=== PATIENT | male | born 1960 | race Caucasian/White ===

== ENCOUNTER 2017-04-02 22:51 | Inpatient (IN) | payer OTHER ==
--- NOTE | ~2017-04-02 | PA ---
Unit #: [id number] #: [id number] Patient: HOWARD LEIVA [id number] [facility] [address] [place] [address] [id number] I MR#: [id number] NAME: HOWARD LEIVA ROOM: P180 Age: 56 Sex: M Admission Date: 04/02/2017 : 1960 Date of Assessment: Attending Physician: Ish Galindo M.D. Admitting Physician: Ish Galindo M.D. Primary Care Physician: Reese Garcia PSYCHIATRIC ASSESSMENT DATE OF SERVICE 04/03/2017. IDENTIFYING DATA Mr. Leiva is a 56-year-old single white male, who is a resident of [place], [place] and was self-referred to the hospital on a voluntary basis. CHIEF COMPLAINT "I've been using alcohol for 11 years." HISTORY OF PRESENT ILLNESS Mr. Leiva is a 56-year-old white male, who was self-referred to the hospital. Upon presentation, he had a blood alcohol level of 0.124 and stated that he was having abdominal pains and was examined by the nurse and reports that he has been abusing alcohol for 11 years and reports that he has been drinking daily a pint of vodka, reports having suicidal ideation, as he stated "I wish it could be over, I wish I would not be here anymore, but I would never do anything to myself to end my life. I just wish to be done with my life." The patient reports increasing depression, anxiety, and reports that he lost his job a week ago due to his alcohol abuse and has been decompensating and has been having feelings of hopelessness and helplessness, and suicidal ideations though he denied any intent or plan. However, he was seen to be a significant danger to self and as such, recommendation for inpatient level of care for safety and stabilization was made and the patient was stepped up to the inpatient unit. SUBSTANCE ABUSE HISTORY The patient reports history of experimentation with alcohol, cannabis, cocaine, acid and amphetamine over the years and currently alcohol has been his drug of choice and reports that he has been drinking since he was 16 years old and currently has been drinking a pint of vodka a day. PAST PSYCHIATRIC HISTORY The patient has had a history of multiple inpatient chemical dependency treatments including being at [facility], at [facility] and at [facility] and has done outpatient treatment through [facility] and review of the medical records indicated that he is currently on Risperdal 1 mg at bedtime, though he does not appear to be following up with a psychiatrist on an outpatient basis. PAST MEDICAL HISTORY Unit #: [id number] #: [id number] Patient: HOWARD LEIVA Significant for alcoholic pancreatitis and alcoholic hepatitis. ALLERGIES Sulfa drugs. PERSONAL AND SOCIAL HISTORY A 56-year-old white male, who reports that he lives at home with his life partner and is currently unemployed and has poor social support system. MENTAL STATUS EXAMINATION Middle-aged white male, who was casually dressed with fair personal hygiene, appears to be in no acute distress or discomfort. He was awake and alert on interaction with intact orientation to time, place, and person. His mood was anxious and depressed with a congruent affect. His speech was slow and goal directed. He reports having suicidal ideations, but denies any homicidal ideations, and also denies any auditory or visual hallucinations. His insight and judgment remain significantly impaired. DIAGNOSTIC IMPRESSION Psychiatric: Alcohol dependence, moderate and acute withdrawals; alcohol-induced mood disorder. Medical: None. Stressors: Moderate psychosocial stressors. TREATMENT PLAN 1. The patient has presented with a history of mood disorder and substance abuse and has been decompensating and will need inpatient hospitalization for detoxification, safety, and stabilization. We will start him back on his home medications. We will adjust the medications and monitor response. 2. Supportive therapy was provided to the patient. 3. Safe, structured, and nourishing environment will be provided. ESTIMATED LENGTH OF STAY 5 to 7 days. ABILITY TO HELP SELF Limited. WILLINGNESS TO HELP SELF The patient appears to be willing to help self. STRENGTHS 1. Communicative. 2. Cooperative. PROBLEMS 1. Chronic chemical dependency. 2. Chronic dysphoric symptoms. 3. Poor social support system. DISCHARGE CRITERIA This will be contingent upon the patient's ability to go through detox without having any significant withdrawal symptoms and his ability to stay safe to himself, particularly after discharge from the hospital. Unit #: [id number] #: [id number] Patient: HOWARD LEIVA Dictated by... Augie Marshall/rikcie TD: 04/03/2017 06:44 JOB #: [id number] PSYCHIATRIC ASSESSMENT Page 1 of 1 X Ish Galindo MD PSYCHIATRIC ASSESSMENT
--- NOTE | ~2017-04-02 | DS ---
Unit #: [id number] #: [id number] Patient: HOWARD LEIVA [id number] [place] [address] [id number] I MR#: [id number] NAME: HOWARD LEIVA ROOM: [facility] Age: 57 Sex: M Admission Date: 04/02/2017 : 1960 Discharge Date: 04/08/2017 Attending Physician: Ish Galindo M.D. Primary Care Physician: Reese Garcia DISCHARGE SUMMARY IDENTIFYING DATA Mr. Leiva is a 56-year-old single white male, who is a resident of [place], [place], and was self-referred to the hospital on a voluntary basis. DISCHARGE DIAGNOSES Psychiatric: Alcohol dependence, moderate and acute withdrawals; alcohol-induced mood disorder. Medical: Hypertension. Stressors: Moderate psychosocial stressors. HISTORY OF PRESENT ILLNESS Please see initial psychiatric evaluation for details. PAST PSYCHIATRIC HISTORY Please see initial psychiatric evaluation for details. PAST MEDICAL HISTORY Please see initial psychiatric evaluation for details. HOSPITAL COURSE The patient was [facility] and was oriented to the hospital environment. Routine p.r.n. medications were initiated, and he was started back on his home medications and medications were adjusted and he was closely monitored. He was taking the medications regularly and was tolerating them fairly well and was able to come out of the detox without any complications and was willing to continue treatment on an outpatient basis and as such, it was decided that he will be discharged home and will continue treatment on an outpatient basis. DISCHARGE MEDICATIONS Oretic 12.5 mg a day for hypertension, Lopressor 25 mg b.i.d. for hypertension, Risperdal 1 mg a day for mood disorder. DISCHARGE CONDITION Stable. PROGNOSIS Fair. Dictated by... Ish Galindo M.D. Unit #: [id number] #: [id number] Patient: HOWARD LEIVA IAA/modl TD: 04/09/2017 07:46 JOB #: [id number] DISCHARGE SUMMARY Page 1 of 1 X Ish Galindo MD X DISCHARGE SUMMARY
--- NOTE | ~2017-04-02 | PN ---
Unit #: [id number] #: [id number] Patient: HOWARD LEIVA [id number] [facility] [address] [place] [address] [id number] I MR#: [id number] NAME: HOWARD LEIVA ROOM: [facility] Age: 57 Sex: M Admission Date: 04/02/2017 : 1960 Attending Physician: Ish Galindo M.D. Admitting Physician: Ish Galindo M.D. Primary Care Physician: Reese Garcia PROGRESS NOTES DATE April 07, 2017 DISCUSSION Mr. Leiva is a 57-year-old white male, who was seen today and chart was reviewed and the case was discussed with the staff. He appears to be doing better and appears to be coming out of the detox without any complications and he has been taking his medications and tolerating them fairly well with no reported side effects. MENTAL STATUS EXAMINATION Middle-aged white male, who was casually dressed with fair personal hygiene and appears to be in no acute distress or discomfort. He was awake and alert on interaction with intact orientation. His mood is anxious with a congruent affect. His speech is slow and goal-directed. He denies any suicidal or homicidal ideations, and also denies any auditory or visual hallucinations. His insight and judgment remain slightly impaired. TREATMENT PLAN 1. We will continue him on his current medications and treatment protocol, and will monitor his response to the medications, and make further adjustments as needed. 2. We will continue to followup. Dictated by... Augie Marshall/gilbert TD: 04/08/2017 10:23 JOB #: [id number] Unit #: [id number] #: [id number] Patient: HOWARD LEIVA PROGRESS NOTES Page 1 of 1 X Ish Galindo MD X PROGRESS NOTE
--- NOTE | ~2017-04-02 | PN ---
Unit #: [id number] #: [id number] Patient: HOWARD LEIVA [id number] [facility] [address] [place] [address] [id number] I MR#: [id number] NAME: HOWARD LEIVA ROOM: P180 Age: 57 Sex: M Admission Date: 04/02/2017 : 1960 Attending Physician: Ish Galindo M.D. Admitting Physician: Ish Galindo M.D. Primary Care Physician: Reese Garcia PROGRESS NOTES DATE OF SERVICE 04/05/2017 DISCUSSION Mr. Leiva is a 57-year-old white male with mood disorder and alcohol dependence who was seen today. Chart was reviewed and case was discussed with the staff. He remains anxious, withdrawn, depressed, and rather seclusive to himself. Meanwhile, he has been cooperative with treatment recommendations and has been taking the medications and tolerating them fairly well. MENTAL STATUS EXAMINATION Middle-aged white male who is casually dressed with fair personal hygiene, appears to be in no acute distress or discomfort. The patient was awake and alert on interaction with intact orientation. His mood is anxious with a congruent affect. He denies any suicidal or homicidal ideations. His insight and judgment remain slightly impaired. TREATMENT PLAN 1. We will continue him on his current medications and treatment protocol. We will monitor his response to the medications and make further adjustments as needed. 2. We will continue to follow up. Dictated by... Ish Galindo M.D. IAA/tomásg TD: 04/05/2017 14:54 JOB #: [id number] Unit #: [id number] #: [id number] Patient: HOWARD LEIVA PROGRESS NOTES Page 1 of 1 X Ish Galindo MD PROGRESS NOTE
--- NOTE | ~2017-04-02 | HP ---
Unit #: [id number] #: [id number] Patient: HOWARD LEIVA [id number] [place] [address] [id number] I MR#: [id number] NAME: HOWARD LEIVA ROOM: P180 Age: 56 Sex: M Admission Date: 04/02/2017 : 1960 Attending Physician: Ish Galindo M.D. Admitting Physician: Ish Galindo M.D. Primary Care Physician: Reese Garcia HISTORY AND PHYSICAL HISTORY OF PRESENT ILLNESS Howard is a 56 year old admitted to [facility] because of his abuse of alcohol. PAST MEDICAL HISTORY 1. Long history of alcohol abuse. 2. Obesity. 3. Hyperlipidemia. 4. High blood pressure. PAST SURGICAL HISTORY Right hip replaced. ALLERGIES Sulfa. SOCIAL HISTORY Smokes 1 pack per day. Drinks 2 pints of liquor on a daily basis. Denies illicit drug use. FAMILY HISTORY Medically noncontributory. REVIEW OF SYSTEMS CONSTITUTIONAL: No fever or chills. HEENT: Denies any sore throat, ear pain or runny nose. CARDIOVASCULAR: Denies chest pain, irregular heart rhythm or palpitations. CHEST: Denies shortness of breath or cough. No hemoptysis. GASTROINTESTINAL: Denies nausea, vomiting, diarrhea or chronic constipation. ENDOCRINE: Denies history of increased thirst or urination. No recent significant weight loss or gain. GENITOURINARY: Denies dysuria, frequency, or hematuria. SKIN: Denies any rashes. HEMATOLOGIC: Denies history of increased bleeding or bruising. MUSCULOSKELETAL: Denies any hot, swollen joints. No generalized muscle pain. NEUROLOGIC: Denies problems with vision or speech. No frequent, severe headaches. No numbness, tingling or weakness in any extremities. Denies loss of bladder or bowel control. CURRENT MEDICATIONS 1. Detox protocol. 2. Risperdal 1 mg daily. Unit #: [id number] #: [id number] Patient: HOWARD LEIVA 3. Lopressor 25 mg b.i.d. 4. HCTZ 12.5 mg daily. PHYSICAL EXAMINATION GENERAL: Alert, well-nourished, in no apparent distress. VITAL SIGNS: Blood pressure 146/96, heart rate 100, respirations 16, temperature 98.6. WEIGHT: 208. HEIGHT: 6 feet 1 inch. SKIN: Warm and dry without rash or lesion. HEENT: Normocephalic. TMs not viewed. Oral and nasal passages clear. Conjunctivae clear. PERRLA. EOMs intact. NECK: Supple without lymphadenopathy or thyromegaly. HEART: Regular rate and rhythm without murmur. LUNGS: Clear. ABDOMEN: Soft, nontender. : Not done. EXTREMITIES: No evidence of cyanosis, clubbing or edema. Moves all without focal deficit. NEUROLOGICAL: Grossly within normal limits. Cranial Nerves: II: Visual [place] are intact. III, IV AND : Extraocular movements are intact. Pupils are equal, round and reactive to light. V: Facial sensation is grossly normal. VII: Facial movements and expression are normal. VIII: Auditory acuity grossly intact. IX, X: Uvula is midline. Phonation is normal. XI: Patient shrugs shoulders and turns head normally. XII: Tongue protrudes in the midline. Sensory and Motor Function: Sensory and motor sensation is grossly normal. Motor: moves all extremities well. Coordination: Gait is normal. Deep Tendon Reflexes: Intact. IMPRESSION Psychiatric admission. RECOMMENDATIONS PSYCHIATRIC: Per psychiatrist. MEDICAL: 1. See no contraindications to participate in facility's activities. 2. Continue HCTZ and Lopressor. MEDICAL PROGNOSIS Good. MEDICAL CONDITION Stable. Dictated by... Jacey Walters P.A.-C. for Augie Mchugh/dayday TD: 04/03/2017 21:13 JOB #: [id number] Unit #: [id number] #: [id number] Patient: HOWARD LEIVA HISTORY AND PHYSICAL Page 1 of 1 X Jacey Walters HISTORY AND PHYSICAL
--- NOTE | ~2017-04-02 | PN ---
Unit #: [id number] #: [id number] Patient: HOWARD LEIVA [id number] [facility] [address] [place] [address] [id number] MR#: [id number] NAME: HOWARD LEIVA ROOM: [facility] Age: 57 Sex: M Admission Date: 04/02/2017 : 1960 Attending Physician: Ish Galindo M.D. Admitting Physician: Ish Galindo M.D. Primary Care Physician: Reese Garcia PROGRESS NOTES DATE April 06, 2017 DISCUSSION Mr. Leiva is a 57-year-old white male who was seen today, chart was reviewed and case was discussed with the staff. She has been anxious, withdrawn, depressed, and rather seclusive to himself. Meanwhile, he has been cooperative with treatment recommendations and he has been taking medications and tolerating them fairly well with no reported side effects. MENTAL STATUS EXAMINATION Middle age white male who was casually dressed with fair personal hygiene and appears to be in no acute distress or discomfort. He was awake and alert on interaction with intact orientation. Mood was anxious with a congruent affect. He denies any suicidal or homicidal ideation. His insight and judgment remain slightly impaired. TREATMENT PLAN Will continue on current medications and treatment protocol. We will monitor his response to medication and make further adjustments as needed. We will continue to follow up. Dictated by... Augie Marshall/richard TD: 04/07/2017 12:04 JOB #: [id number] JESSICA PROGRESS NOTES Page 1 of 1 X Ish Galindo MD PROGRESS NOTE
--- NOTE | ~2017-04-02 | PN ---
Unit #: [id number] #: [id number] Patient: HOWARD LEIVA [id number] [facility] [address] [place] [address] [id number] I MR#: [id number] NAME: HOWARD LEIVA ROOM: P180 Age: 57 Sex: M Admission Date: 04/02/2017 : 1960 Attending Physician: Ish Galindo M.D. Admitting Physician: Ish Galindo M.D. Primary Care Physician: Reese Garcia PROGRESS NOTES DATE April 04, 2017 DISCUSSION Ms. Leiva is a 57-year-old white male, with alcohol dependence, who was seen today and chart was reviewed and the case was discussed with the staff. He has been anxious, withdrawn, shaky, tremulous, unkept, disheveled, and seclusive to himself in his bed. Meanwhile, he has been taking the medications and tolerating them fairly well with no reported side effects. MENTAL STATUS EXAMINATION Middle-aged white man, who was casually dressed with fair personal hygiene and appears to be in no acute distress or discomfort. He was awake and alert on interaction with intact orientation. His mood is anxious with a congruent affect. He denies any suicidal or homicidal ideations. His insight and judgment remain slightly impaired. TREATMENT PLAN 1. We will continue him on his current medications and treatment protocol, and will monitor his response to the medications, and make further adjustments as needed. 2. We will continue to followup. Dictated by... Augie Marshall/gilbert TD: 04/04/2017 09:17 JOB #: [id number] Unit #: [id number] #: [id number] Patient: HOWARD LEIVA PROGRESS NOTES Page 1 of 1 X Ish Galindo MD PROGRESS NOTE
[2017-04-03 09:55] LABS: BASOPHIL# 0.1 X10e3 (0-0.3); BASOPHIL% 0.8 % (0-2.5); EOSINOPHIL# 0.1 X10e3 (0-0.7); EOSINOPHIL% 1.7 % (0.0-7.0); HEMOGLOBIN 14.9 gm/dL (13.0-16.0); LYMPHOCYTE# 3.5 X10e3 (1.0-3.5); LYMPHOCYTE% 52.6 % (17.0-45.0); MEAN CELL VOLUME 86.5 FL (83-96); MEAN CORPUSCULAR HEMOGLOBIN 28.7 PG (28-34); MEAN CORPUSCULAR HGB CONC 33.1 g/dL (30-36); MEAN PLATELET VOLUME 8.7 FL (6.5-11.5); MONOCYTE# 0.6 X10e3 (0-1.0); MONOCYTE% 8.5 % (3.0-12.0); NEUTROPHIL# 2.4 X10e3 (1.5-7.1); NEUTROPHIL% 36.4 % (40-75); PLATELET COUNT 222 X10e3 (140-420); RED BLOOD COUNT 5.21 X10e (3.90-5.60); RED CELL DISTRIBUTION WIDTH 14.9 % (11.0-15.5); WHITE BLOOD COUNT 6.6 X10e3 (4.0-10.5)
[2017-04-03 09:56] LABS: DIFF IND YES
[2017-04-03 10:09] LABS: ALBUMIN SERUM 3.5 g/dL (3.5-5.0); BUN/CREATININE RATIO 27.5; CALCIUM SERUM 8.7 mg/dL (8.4-10.2); CREATININE SERUM 0.8 mg/dL (0.6-1.4); GLOM FILT RATE Estimated 99.2 mL/min (>60); POTASSIUM 4.1 mmol/L (3.5-5.1); PROTEIN TOTAL SERUM 6.2 g/dL (6.0-8.3)
[2017-04-03 10:14] LABS: ANISOCYTOSIS SL; PLATELET ESTIMATE NORMAL (NORMAL)
[2017-04-04 09:46] LABS: URINE APPEARANCE CLEAR; URINE BILIRUBIN NEG (NEG); URINE BLOOD NEG (NEG); URINE COLOR YELLOW; URINE GLUCOSE NEG (NEG); URINE KETONE NEG (NEG); URINE LEUKOCYTE ESTERASE NEG (NEG); URINE NITRATE NEG (NEG); URINE PROTEIN NEG (NEG); URINE SPECIFIC GRAVITY 1.012 (1.003-1.035); URINE UROBILINOGEN 0.2 MG/DL (NEG)
[2017-04-04 11:04] LABS: AMPHETAMINE NEG (NEG); BARBITURATES NEG (NEG); BENZODIAZEPINES NEG (NEG); COCAINE NEG (NEG); MARIJUANA NEG (NEG); OPIATES NEG (NEG); TRICYCLIC ANTIDEPRESSANTS NEG (NEG); U METHADONE NEG (NEG)
== END 2017-04-08 09:45 | disposition home or self-care (01) | DRG 897 ==
LOC: P1E 22:51
PROVIDERS: Psychiatry & Neurology Psychiatry
PROC: HZ2ZZZZ Detoxification Services for Substance Abuse Treatment (ICD-10-PCS; principal; 2017-04-02)
DX: F10.239 Alcohol dependence with withdrawal, unspecified (principal); F10.24 Alcohol dependence with alcohol-induced mood disorder; I10 Essential (primary) hypertension; E66.9 Obesity, unspecified; F17.210 Nicotine dependence, cigarettes, uncomplicated; E78.5 Hyperlipidemia, unspecified; Z88.2 Allergy status to sulfonamides
CPT/HCPCS: 80053; 80307; 81003; 85025; 86592